=== PATIENT | female | born 2000 | race African-American/Black ===

== ENCOUNTER 2025-05-11 09:47 | Emergency (ER) | payer MEDICAID ==
[~2025-05-11] VITALS: Ht 157.5 cm; Wt 58.0 kg
[2025-05-11 10:08] VITALS: O2SAT 99
[2025-05-11 11:19] LABS: CLARITY URINE CLEAR (CLEAR); COLOR URINE YELLOW (YELLOW); GLUCOSE URINE NEGATIVE (NEGATIVE); KETONES URINE NEGATIVE (NEGATIVE); NITRITE URINE NEGATIVE (NEGATIVE); OCCULT BLOOD URINE NEGATIVE (NEGATIVE); PH URINE 6.5 (4.5-8.0); PROTEIN URINE NEGATIVE (NEGATIVE); SPECIFIC GRAVITY URINE 1.024 (1.005-1.030); UROBILINOGEN URINE 1.0 E.U./dL (0.2-1.0)
[2025-05-11 11:20] LABS: LEUKOCYTE ESTERASE URINE 1+ (NEGATIVE)
[2025-05-11 11:37] LABS: SQUAMOUS EPITHELIAL CELL URINE 3+ /lpf (RARE/1+)
[2025-05-11 11:38] LABS: BACTERIA URINE 3+
[2025-05-11 11:41] LABS: RBC URINE NONE SEEN /hpf (0-2)
[2025-05-11] MEDS ORDERED: METR70GE27 VG (11:49)
[2025-05-11] MEDS ORDERED: NITR100C MT (11:49)
[2025-05-11 12:14] VITALS: BP 113/64; PULSE 67; RESP 14; TEMP 36.8; O2SAT 100
[2025-05-14 05:10] LABS: CHLAMYDIA TRACHOMATIS NAA Negative (Negative); NEISSERIA GONORRHOEAE NAA Negative (Negative)
== END 2025-05-11 12:15 | disposition home or self-care (01) ==
LOC: ER 10:31
DX: N39.0 Urinary tract infection, site not specified (principal); N76.0 Acute vaginitis; B96.89 Other specified bacterial agents as the cause of diseases classified elsewhere; Z11.3 Encounter for screening for infections with a predominantly sexual mode of transmission; Z79.899 Other long term (current) drug therapy
CPT/HCPCS: 87491; 87591; 81003; 81025; 87086; 87186; 87210; 87077; 99284; Z7610